=== PATIENT | male | born 1945 | race Caucasian/White ===

== ENCOUNTER → 2016-11-19 | Outpatient (CLI) | payer MEDICARE, BC ==
[2016-11-19 11:03] LABS: MEAN CORPUSCULAR HEMOGLOBIN 31.3 pg (27.0-33.0); MEAN CORPUSCULAR HGB CONC 33.6 g/dl (32.0-36.5); MEAN CORPUSCULAR VOLUME 93.3 fl (80.0-96.0); RED CELL DISTRIBUTION WIDTH 13.2 % (11.5-14.5); WHITE BLOOD COUNT 5.2 K/mm3 (4.0-10.0)
[2016-11-19 12:41] LABS: ALBUMIN 3.7 GM/DL (3.2-5.2); ALBUMIN/GLOBULIN RATIO 1.06 (1.00-1.93); ALKALINE PHOSPHATASE 76 U/L (45-117); ALT/SGPT 26 U/L (12-78); ANION GAP 7 MEQ/L (8-16); AST/SGOT 15 U/L (15-37); BILIRUBIN,TOTAL 0.4 MG/DL (0.2-1.0); BLOOD UREA NITROGEN 15 MG/DL (7-18); CALCIUM LEVEL 8.9 MG/DL (8.8-10.2); CARBON DIOXIDE LEVEL 29 MEQ/L (21-32); CHLORIDE LEVEL 105 MEQ/L (98-107); CHOLESTEROL LEVEL 110 MG/DL (<200); CREATININE FOR GFR 1.24 MG/DL (0.70-1.30); GLOMERULAR FILTRATION RATE > 60.0 (>42); GLUCOSE, FASTING 96 MG/DL (83-110); MAGNESIUM LEVEL 2.1 MG/DL (1.8-2.4); POTASSIUM SERUM 4.2 MEQ/L (3.5-5.1); SODIUM LEVEL 141 MEQ/L (136-145); TOTAL PROTEIN 7.2 GM/DL (6.4-8.2); TRIGLYCERIDES LEVEL 123 MG/DL (<150)
== END ==
LOC: M LAB 10:31
PROVIDERS: ATTEND Physician Assistant
DX: I25.10 Atherosclerotic heart disease of native coronary artery without angina pectoris (principal); I25.5 Ischemic cardiomyopathy; E78.00 Pure hypercholesterolemia, unspecified; I48.0 Paroxysmal atrial fibrillation

== ENCOUNTER → 2016-11-29 | Outpatient (CLI) | payer MEDICARE, BC | LOC: M LAB 14:22 | PROVIDERS: ATTEND Physician Assistant | DX: I25.5 Ischemic cardiomyopathy (principal); E78.5 Hyperlipidemia, unspecified ==

== ENCOUNTER 2017-02-01 10:19 | Emergency (ER) | payer MEDICARE, BC ==
[~2017-02-01] VITALS: Ht 170.2 cm; Wt 94.3 kg
[2017-02-01] MEDS ORDERED: CARV3.12 (10:48)
[2017-02-01] MEDS ORDERED: TAMSULOSIN (10:48)
[2017-02-01] MEDS ORDERED: ASPI32ECTA PO (10:48)
[2017-02-01] MEDS ORDERED: TRAM50TA2 (10:48)
[2017-02-01] MEDS ORDERED: DIGO0.12 (10:48)
[2017-02-01] MEDS ORDERED: ESCI20TA (10:48)
[2017-02-01] MEDS ORDERED: ATOR1TAB18 (10:48)
[2017-02-01] MEDS ORDERED: NITR0.4S14 SL (10:48)
[2017-02-01] MEDS ORDERED: FURO40TA2 (10:48)
[2017-02-01] MEDS ORDERED: LYRI100C10 (10:48)
[2017-02-01] MEDS ORDERED: CLOP75TA2 (10:48)
[2017-02-01] MEDS ORDERED: FINA5TAB2 (10:48)
[2017-02-01] MEDS ORDERED: LOSA50TA20 (10:48)
[2017-02-01 11:57] VITALS: BP 122/67
--- NOTE | 2017-02-04 10:17 | REP ---
LEFT ELBOW SERIES: Four views of the left elbow performed. There is no acute fracture or dislocation. There is mild spurring of the olecranon. Focal soft tissue swelling over the olecranon suggests bursal fluid. IMPRESSION: No acute fracture or dislocation. Soft tissue swelling over the olecranon with possible bursal fluid. Signed by Ander Galeano MD 02/04/2017 04:34 P
== END 2017-02-01 11:58 | disposition home or self-care (01) ==
LOC: M ED 11:22
DX: M70.22 Olecranon bursitis, left elbow (principal); Z79.82 Long term (current) use of aspirin; Z79.899 Other long term (current) drug therapy; F17.210 Nicotine dependence, cigarettes, uncomplicated; Z95.0 Presence of cardiac pacemaker; I25.2 Old myocardial infarction; E78.00 Pure hypercholesterolemia, unspecified; I10 Essential (primary) hypertension; N40.0 Benign prostatic hyperplasia without lower urinary tract symptoms

== ENCOUNTER → 2017-12-30 | Outpatient (CLI) | payer MEDICARE, BC ==
[2017-12-30 09:25] LABS: HEMATOCRIT 41.3 % (42.0-52.0); HEMOGLOBIN 13.9 g/dl (14.0-18.0); MEAN CORPUSCULAR HEMOGLOBIN 31.1 pg (27.0-33.0); MEAN CORPUSCULAR HGB CONC 33.7 g/dl (32.0-36.5); MEAN CORPUSCULAR VOLUME 92.4 fl (80.0-96.0); PLATELET COUNT, AUTOMATED 165 10^3/uL (150-450); RED BLOOD COUNT 4.47 10^6/uL (4.30-6.10); RED CELL DISTRIBUTION WIDTH 13.2 % (11.5-14.5); WHITE BLOOD COUNT 4.9 10^3/uL (4.0-10.0)
[2017-12-30 09:52] LABS: ALBUMIN 3.9 GM/DL (3.2-5.2); ALKALINE PHOSPHATASE 68 U/L (45-117); ALT/SGPT 15 U/L (12-78); ANION GAP 6 MEQ/L (8-16); AST/SGOT 9 U/L (7-37); BILIRUBIN,TOTAL 0.5 MG/DL (0.2-1.0); BLOOD UREA NITROGEN 21 MG/DL (7-18); CALCIUM LEVEL 8.5 MG/DL (8.8-10.2); CARBON DIOXIDE LEVEL 27 MEQ/L (21-32); CHLORIDE LEVEL 111 MEQ/L (98-107); CHOLESTEROL LEVEL 102 MG/DL (<200); CHOLESTEROL RISK RATIO 2.372 (<5); CREATININE FOR GFR 1.04 MG/DL (0.70-1.30); GLOMERULAR FILTRATION RATE > 60.0 (>42); GLUCOSE, FASTING 103 MG/DL (70-100); HDL CHOLESTEROL 43 MG/DL (>40); LDL CHOLESTEROL 38.2 MG/DL (<100); MAGNESIUM LEVEL 2.1 MG/DL (1.8-2.4); NON-HDL-C 59 MG/DL; SODIUM LEVEL 144 MEQ/L (136-145); TOTAL PROTEIN 6.5 GM/DL (6.4-8.2); TRIGLYCERIDES LEVEL 104 MG/DL (<150)
== END ==
LOC: M LAB 09:06
DX: I25.10 Atherosclerotic heart disease of native coronary artery without angina pectoris (principal); I25.5 Ischemic cardiomyopathy; E78.00 Pure hypercholesterolemia, unspecified; I48.0 Paroxysmal atrial fibrillation
CPT/HCPCS: 83735

== ENCOUNTER 2018-04-14 12:53 | Outpatient (RCR) | payer MEDICARE, BC | END 2018-04-26 | LOC: M CR 12:53 | DX: Z51.89 Encounter for other specified aftercare (principal); I50.9 Heart failure, unspecified | CPT/HCPCS: 93798 ==

== ENCOUNTER → 2018-04-14 | Outpatient (CLI) | payer MEDICARE, BC ==
[2018-04-14 14:15] LABS: ANION GAP 11 MEQ/L (8-16); BLOOD UREA NITROGEN 24 MG/DL (7-18); CALCIUM LEVEL 9.1 MG/DL (8.8-10.2); CARBON DIOXIDE LEVEL 26 MEQ/L (21-32); CHLORIDE LEVEL 104 MEQ/L (98-107); CREATININE FOR GFR 1.35 MG/DL (0.70-1.30); GLUCOSE, FASTING 104 MG/DL (70-100); MAGNESIUM LEVEL 2.2 MG/DL (1.8-2.4); SODIUM LEVEL 141 MEQ/L (136-145)
== END ==
LOC: M LAB 12:46
DX: I50.42 Chronic combined systolic (congestive) and diastolic (congestive) heart failure (principal)
CPT/HCPCS: 83735

== ENCOUNTER 2018-04-28 13:22 | Outpatient (RCR) | payer MEDICARE, BC | END 2018-05-27 | LOC: M CR 13:22 | DX: Z51.89 Encounter for other specified aftercare (principal); I50.9 Heart failure, unspecified | CPT/HCPCS: 93798 ==

== ENCOUNTER → 2018-05-30 | Outpatient (CLI) | payer MEDICARE, BC | LOC: M RAD 09:12 | DX: M47.892 Other spondylosis, cervical region (principal); M50.21 Other cervical disc displacement, high cervical region; M50.23 Other cervical disc displacement, cervicothoracic region; M50.221 Other cervical disc displacement at C4-C5 level; M50.223 Other cervical disc displacement at C6-C7 level | CPT/HCPCS: 72125 ==

== ENCOUNTER → 2018-08-14 | Outpatient (CLI) | payer MEDICARE, BC ==
[2018-08-14 13:20] LABS: ANION GAP 5 MEQ/L (8-16); BLOOD UREA NITROGEN 22 MG/DL (7-18); CALCIUM LEVEL 8.6 MG/DL (8.8-10.2); CARBON DIOXIDE LEVEL 32 MEQ/L (21-32); CHLORIDE LEVEL 105 MEQ/L (98-107); CREATININE FOR GFR 1.26 MG/DL (0.70-1.30); GLOMERULAR FILTRATION RATE 59.6 (>42); GLUCOSE, FASTING 93 MG/DL (70-100); MAGNESIUM LEVEL 2.2 MG/DL (1.8-2.4); POTASSIUM SERUM 4.2 MEQ/L (3.5-5.1); SODIUM LEVEL 142 MEQ/L (136-145)
== END ==
LOC: M LAB 12:39
DX: I50.42 Chronic combined systolic (congestive) and diastolic (congestive) heart failure (principal)
CPT/HCPCS: 83735

== ENCOUNTER → 2018-08-15 | Outpatient (REF) | payer MEDICARE, BC ==
[2018-08-15 12:57] LABS: DIGOXIN LEVEL 0.4 NG/ML (0.5-2.0)
== END ==
LOC: M LAB REF 12:05
DX: I25.5 Ischemic cardiomyopathy (principal); Z51.81 Encounter for therapeutic drug level monitoring; Z79.899 Other long term (current) drug therapy
CPT/HCPCS: 80162

== ENCOUNTER → 2018-11-10 | Outpatient (CLI) | payer MEDICARE, BC ==
[~2018-11-10] MED LIST: ASPI325T25 PO; ATOR80TA59 PO; CARV3.12 PO; CLOP75TA2 PO; COLA100C5 PO; DIGO0.12 PO; ESCI20TA PO; FINA5TAB2 PO; FLOM0.4C39 PO; FURO40TA2; LASI20TA3 PO; LOSA50TA88 PO; NITR0.4S14 SL; PREG100CA; ROPI1TAB PO; TAMSULOSIN; TRAM50TA2 PO
[2018-11-10 14:20] LABS: BLOOD UREA NITROGEN 19 MG/DL (7-18); CALCIUM LEVEL 8.4 MG/DL (8.8-10.2); CARBON DIOXIDE LEVEL 30 MEQ/L (21-32); CHLORIDE LEVEL 103 MEQ/L (98-107); CREATININE FOR GFR 1.18 MG/DL (0.70-1.30); GLOMERULAR FILTRATION RATE > 60.0 (>42); GLUCOSE, FASTING 81 MG/DL (70-100); MAGNESIUM LEVEL 2.1 MG/DL (1.8-2.4); POTASSIUM SERUM 3.8 MEQ/L (3.5-5.1); SODIUM LEVEL 140 MEQ/L (136-145)
== END ==
LOC: M LAB 13:08
PROVIDERS: ATTEND Physician Assistant
DX: I50.42 Chronic combined systolic (congestive) and diastolic (congestive) heart failure (principal)

== ENCOUNTER → 2018-12-13 | Outpatient (CLI) | payer MEDICARE, BC ==
--- NOTE | 2018-12-16 20:14 | SLEEPCENT ---
DATE OF PROCEDURE: 12/13/2018 ORDERED BY: Nasrin Foster Nocturnal polysomnography was performed for re-titration of pressure therapy in this patient with obstructive sleep apnea syndrome and persistent symptoms. For testing, a bilevel device was used, an initial pressure of 14 over 10 delivered via [employer] Kathy View full face mask. 7 hours and 56 minutes of data were reviewed. There were 394 minutes of sleep identified. Sleep latency was normal at 22.5 minutes. Rapid eye movement (REM) latency was normal at 123 minutes. Sleep architecture was fair with three REM cycles noted. Overall sleep efficiency was 84.5%. The patient's electrocardiogram showed what appeared to be a paced rhythm with occasional ectopy, average heart rate 50 beats per minute. EEG showed fairly normal waveforms for awake and sleep, some alpha intrusion was noted. Optimal pressure therapy for the relief of obstructive respiratory events was found to be 18 over 14 with which the patient was able to sleep through REM without respiratory event or oxygen desaturation. There was some activity noted in the limb leads but arousals were few. IMPRESSION: Obstructive sleep apnea syndrome (G47.33). RECOMMENDATIONS: Nightly use of bilevel pressure therapy inspiratory 18 over expiratory 14.
== END ==
LOC: M SLEEP 20:00
PROVIDERS: ATTEND Nurse Practitioner Adult Health
DX: G47.33 Obstructive sleep apnea (adult) (pediatric) (principal)

== ENCOUNTER → 2019-02-16 | Outpatient (CLI) | payer MEDICARE, BC ==
[~2019-02-16] MED LIST changes: +ASPI-255 PO; -ASPI325T25 PO
[2019-02-16 12:33] LABS: BLOOD UREA NITROGEN 23 MG/DL (7-18); CALCIUM LEVEL 8.4 MG/DL (8.8-10.2); CARBON DIOXIDE LEVEL 26 MEQ/L (21-32); CHLORIDE LEVEL 109 MEQ/L (98-107); CREATININE FOR GFR 1.18 MG/DL (0.70-1.30); GLOMERULAR FILTRATION RATE > 60.0 (>42); GLUCOSE, FASTING 111 MG/DL (70-100); MAGNESIUM LEVEL 2.2 MG/DL (1.8-2.4); POTASSIUM SERUM 4.2 MEQ/L (3.5-5.1); SODIUM LEVEL 141 MEQ/L (136-145)
== END ==
LOC: M LAB 11:38
PROVIDERS: ATTEND Physician Assistant
DX: I50.42 Chronic combined systolic (congestive) and diastolic (congestive) heart failure (principal)

== ENCOUNTER → 2019-04-10 | Outpatient (REF) | payer MEDICARE, BC | LOC: M LAB REF 11:25 | PROVIDERS: ATTEND Internal Medicine | DX: I25.5 Ischemic cardiomyopathy (principal); Z79.899 Other long term (current) drug therapy ==

== ENCOUNTER → 2019-05-22 | Outpatient (CLI) | payer MEDICARE, BC ==
[2019-05-22 10:37] LABS: HEMATOCRIT 42.8 % (42.0-52.0); HEMOGLOBIN 13.9 g/dl (13.5-17.5); MEAN CORPUSCULAR HEMOGLOBIN 31.7 pg (27.0-33.0); MEAN CORPUSCULAR HGB CONC 32.5 g/dl (32.0-36.5); MEAN CORPUSCULAR VOLUME 97.7 fl (80.0-96.0); PLATELET COUNT, AUTOMATED 186 10^3/uL (150-450); RED BLOOD COUNT 4.38 10^6/uL (4.30-6.10); WHITE BLOOD COUNT 5.9 10^3/uL (4.0-10.0)
[2019-05-22 11:04] LABS: CREATININE FOR GFR 1.28 MG/DL (0.70-1.30); GLOMERULAR FILTRATION RATE 58.3 (>42); MAGNESIUM LEVEL 2.4 MG/DL (1.8-2.4); POTASSIUM SERUM 4.2 MEQ/L (3.5-5.1)
== END ==
LOC: M LAB 10:08
PROVIDERS: ATTEND Physician Assistant
DX: R42 Dizziness and giddiness (principal); I25.5 Ischemic cardiomyopathy; I50.42 Chronic combined systolic (congestive) and diastolic (congestive) heart failure

== ENCOUNTER → 2020-02-17 | Outpatient (REF) | payer MEDICARE, BC ==
[~2020-02-17] MED LIST changes: -ROPI1TAB PO; +ROPI1TAB3 PO
== END ==
LOC: M LAB REF 11:51
PROVIDERS: ATTEND Internal Medicine
DX: I25.5 Ischemic cardiomyopathy (principal)

== ENCOUNTER → 2021-03-28 | Outpatient (CLI) | payer MEDICARE, BC ==
[~2021-03-28] MED LIST changes: -ESCI20TA PO; +ESCI20TA16 PO
[2021-03-28 15:45] LABS: BLOOD UREA NITROGEN 23 MG/DL (7-18); CALCIUM LEVEL 8.9 MG/DL (8.8-10.2); CARBON DIOXIDE LEVEL 31 MEQ/L (21-32); CHLORIDE LEVEL 105 MEQ/L (98-107); CREATININE FOR GFR 1.17 MG/DL (0.70-1.30); GLOMERULAR FILTRATION RATE > 60.0 (>42); GLUCOSE, FASTING 68 MG/DL (70-100); MAGNESIUM LEVEL 2.2 MG/DL (1.8-2.4); POTASSIUM SERUM 4.3 MEQ/L (3.5-5.1); SODIUM LEVEL 141 MEQ/L (136-145)
== END ==
LOC: M LAB 13:59
PROVIDERS: ATTEND Physician Assistant
DX: I50.42 Chronic combined systolic (congestive) and diastolic (congestive) heart failure (principal)

== ENCOUNTER 2021-05-17 16:23 | Emergency (ER) | payer MEDICARE, BC ==
[~2021-05-17] VITALS: Ht 167.6 cm; Wt 90.6 kg
[2021-05-17] MEDS ORDERED: FARX1TAB3 (16:31)
--- NOTE | 2021-05-17 17:02 | REP ---
INDICATION: CHEST PAIN. COMPARISON: 03/04/2018. TECHNIQUE: Single portable AP view of the chest was performed. FINDINGS: There is mild linear fibro atelectatic change in the right lung base. No acute infiltrate is visualized bilaterally. The heart is not significantly enlarged. The mediastinal silhouette is unchanged. Multiple sternal wires mediastinal clips are present. There is a right pacemaker. IMPRESSION: Mild linear fibro atelectatic change right lung base. <Electronically signed by Ander Galeano > 05/17/21 [id number]
[2021-05-17 17:24] LABS: BASO % 0.3 % (0.0-1.0); EOS # 0.2 10^3/uL (0.0-0.5); EOS % 3.8 % (0.0-3.0); HEMATOCRIT 39.8 % (42.0-52.0); HEMOGLOBIN 13.1 g/dl (13.5-17.5); LYMPH # 1.6 10^3/uL (1.5-5.0); LYMPH % 25.4 % (24.0-44.0); MEAN CORPUSCULAR HGB CONC 32.9 g/dl (32.0-36.5); MEAN CORPUSCULAR VOLUME 97.1 fl (80.0-96.0); MONO # 0.8 10^3/uL (0.0-0.8); MONO % 12.6 % (2.0-8.0); NEUTROPHILS # 3.6 10^3/uL (1.5-8.5); NEUTROPHILS % 57.4 % (36.0-66.0); PLATELET COUNT, AUTOMATED 193 10^3/uL (150-450); WHITE BLOOD COUNT 6.3 10^3/uL (4.0-10.0)
[2021-05-17 17:47] LABS: ALBUMIN 3.7 GM/DL (3.2-5.2); ALT/SGPT 22 U/L (12-78); BILIRUBIN,DIRECT 0.1 MG/DL (0.0-0.2); BILIRUBIN,TOTAL 0.4 MG/DL (0.2-1.0); BLOOD UREA NITROGEN 27 MG/DL (7-18); CARBON DIOXIDE LEVEL 30 MEQ/L (21-32); CHLORIDE LEVEL 105 MEQ/L (98-107); CK-MB VALUE MASS < 1.0 NG/ML (<3.6); CPK CREATINE PHOSPHOKINASE 94 U/L (39-308); CREATININE FOR GFR 1.22 MG/DL (0.70-1.30); GLOMERULAR FILTRATION RATE > 60.0 (>42); GLUCOSE, FASTING 89 MG/DL (70-100); LIPASE 671 U/L (73-393); MB/CK RELATIVE INDEX 1.06 (< OR =4); SODIUM LEVEL 141 MEQ/L (136-145); TOTAL PROTEIN 6.5 GM/DL (6.4-8.2); TROPONIN I < 0.02 NG/ML (< 0.10)
--- NOTE | 2021-05-17 18:02 | ECGEPIP ---
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
[2021-05-17 21:28] LABS: CK-MB VALUE MASS 1.1 NG/ML (<3.6); CPK CREATINE PHOSPHOKINASE 81 U/L (39-308); MB/CK RELATIVE INDEX 1.36 (< OR =4); TROPONIN I < 0.02 NG/ML (< 0.10)
[2021-05-17 21:55] VITALS: BP 125/69
== END 2021-05-17 21:51 | disposition home or self-care (01) ==
LOC: M ED 16:23
DX: R07.9 Chest pain, unspecified (principal); E11.9 Type 2 diabetes mellitus without complications; I10 Essential (primary) hypertension; I25.2 Old myocardial infarction; E78.5 Hyperlipidemia, unspecified; Z95.1 Presence of aortocoronary bypass graft; Z95.5 Presence of coronary angioplasty implant and graft

== ENCOUNTER → 2021-10-03 | Outpatient (REF) | payer MEDICARE, BC ==
[~2021-10-03] MED LIST changes: +FARX1TAB3
== END ==
LOC: M LAB REF 12:32
PROVIDERS: ATTEND Internal Medicine
DX: I25.5 Ischemic cardiomyopathy (principal); I11.0 Hypertensive heart disease with heart failure; I50.9 Heart failure, unspecified

== ENCOUNTER → 2022-04-17 | Outpatient (CLI) | payer MEDICARE, BC ==
[~2022-04-17] MED LIST changes: +LOSA50TA28 PO; -LOSA50TA88 PO
[2022-04-17 13:11] LABS: CALCIUM LEVEL 9.8 MG/DL (8.8-10.2); CHOLESTEROL RISK RATIO 2.431 (<5); CREATININE FOR GFR 1.37 MG/DL (0.70-1.30); GLOMERULAR FILTRATION RATE 53.5 (>42); MAGNESIUM LEVEL 2.5 MG/DL (1.8-2.4)
== END ==
LOC: M WUC 09:36
PROVIDERS: ATTEND Physician Assistant
DX: I50.42 Chronic combined systolic (congestive) and diastolic (congestive) heart failure (principal); E78.00 Pure hypercholesterolemia, unspecified

== ENCOUNTER → 2022-07-18 | Outpatient (CLI) | payer MEDICARE, BC ==
[2022-07-18 13:18] LABS: BLOOD UREA NITROGEN 22 MG/DL (7-18); CALCIUM LEVEL 9.6 MG/DL (8.8-10.2); CARBON DIOXIDE LEVEL 29 MEQ/L (21-32); CHLORIDE LEVEL 105 MEQ/L (98-107); CREATININE FOR GFR 1.23 MG/DL (0.70-1.30); GLOMERULAR FILTRATION RATE > 60.0 (>42); GLUCOSE, FASTING 114 MG/DL (70-100); MAGNESIUM LEVEL 2.4 MG/DL (1.8-2.4); POTASSIUM SERUM 3.9 MEQ/L (3.5-5.1); SODIUM LEVEL 139 MEQ/L (136-145)
== END ==
LOC: M WUC 09:22
PROVIDERS: ATTEND Physician Assistant
DX: I50.42 Chronic combined systolic (congestive) and diastolic (congestive) heart failure (principal)

== ENCOUNTER → 2022-08-02 | Outpatient (REF) | payer MEDICARE, BC | LOC: M LAB REF 12:18 | PROVIDERS: ATTEND Internal Medicine | DX: I25.5 Ischemic cardiomyopathy (principal); Z79.899 Other long term (current) drug therapy ==

== ENCOUNTER → 2023-02-12 | Outpatient (REF) | payer MEDICARE, BC | LOC: M LAB REF 12:34 | PROVIDERS: ATTEND Internal Medicine | DX: I25.5 Ischemic cardiomyopathy (principal); Z79.899 Other long term (current) drug therapy ==

== ENCOUNTER 2023-05-25 11:44 | Emergency (ER) | payer MEDICARE, BC ==
[~2023-05-25] VITALS: Ht 170.2 cm; Wt 92.1 kg
[~2023-05-25 11:44] MED LIST changes: -ROPI1TAB3 PO; +ROPI1TAB73 PO
[2023-05-25 12:40] LABS: BASO % 0.5 % (0.0-1.0); EOS # 0.2 10^3/uL (0.0-0.5); HEMATOCRIT 43.6 % (42.0-52.0); HEMOGLOBIN 14.3 g/dl (13.5-17.5); LYMPH # 1.2 10^3/uL (1.5-5.0); LYMPH % 19.2 % (24.0-44.0); MEAN CORPUSCULAR HEMOGLOBIN 31.4 pg (27.0-33.0); MEAN CORPUSCULAR HGB CONC 32.8 g/dl (32.0-36.5); MEAN CORPUSCULAR VOLUME 95.6 fl (80.0-96.0); MONO # 0.8 10^3/uL (0.0-0.8); MONO % 13.2 % (2.0-8.0); NEUTROPHILS # 4.1 10^3/uL (1.5-8.5); NEUTROPHILS % 63.9 % (36.0-66.0); PLATELET COUNT, AUTOMATED 196 10^3/uL (150-450); RED BLOOD COUNT 4.56 10^6/uL (4.30-6.10); WHITE BLOOD COUNT 6.4 10^3/uL (4.0-10.0)
[2023-05-25 12:52] LABS: INR 0.96; PARTIAL THROMBOPLASTIN TIME 38.1 SECONDS (24.8-34.2)
[2023-05-25 13:10] LABS: CK-MB VALUE MASS 1.1 NG/ML (<3.6); LIPASE 289 U/L (12-53)
[2023-05-25 13:13] LABS: THYROID STIMULATING HORMONE 2.677 uIU/ML (0.55-4.78)
[2023-05-25 13:16] LABS: ALBUMIN 3.5 G/DL (3.2-5.2); ALKALINE PHOSPHATASE 75 U/L (46-116); ALT/SGPT 18 U/L (7.0-40); AST/SGOT 9 U/L (<34); BILIRUBIN,DIRECT 0.2 MG/DL (<0.4); BILIRUBIN,TOTAL 0.6 MG/DL (0.3-1.2); BLOOD UREA NITROGEN 17 MG/DL (9-23); CARBON DIOXIDE LEVEL 26 MMOL/L (20-31); CHLORIDE LEVEL 105 MMOL/L (98-107); CPK CREATINE PHOSPHOKINASE 83 U/L (46-171); GLOMERULAR FILTRATION RATE > 60.0 (>42); GLUCOSE, FASTING 101 MG/DL (74-106); MB/CK RELATIVE INDEX 1.32 (< OR =4); POTASSIUM SERUM 4.6 MMOL/L (3.5-5.1); SODIUM LEVEL 141 MMOL/L (136-145); TOTAL PROTEIN 6.1 G/DL (5.7-8.2)
[2023-05-25 14:18] LABS: CK-MB VALUE MASS < 1.0 NG/ML (<3.6)
[2023-05-25 14:22] LABS: CPK CREATINE PHOSPHOKINASE 76 U/L (46-171); MB/CK RELATIVE INDEX 1.31 (< OR =4)
[2023-05-25 16:16] VITALS: BP 111/57; TEMP 98.1; O2SAT 97
== END 2023-05-25 16:25 | disposition home or self-care (01) ==
LOC: M ED 11:44
DX: T82.198A Other mechanical complication of other cardiac electronic device, initial encounter (principal); I25.10 Atherosclerotic heart disease of native coronary artery without angina pectoris; I50.20 Unspecified systolic (congestive) heart failure; Z79.82 Long term (current) use of aspirin; Z79.899 Other long term (current) drug therapy

== ENCOUNTER → 2023-12-02 | Outpatient (REF) | payer MEDICARE, BC | LOC: M LAB REF 12:46 | PROVIDERS: ATTEND Internal Medicine | DX: I42.8 Other cardiomyopathies (principal) ==

== ENCOUNTER → 2024-01-04 | Outpatient (CLI) | payer MEDICARE, BC ==
[2024-01-04 10:50] LABS: BLOOD UREA NITROGEN 19 MG/DL (9-23); CARBON DIOXIDE LEVEL 30 MMOL/L (20-31); CHLORIDE LEVEL 106 MMOL/L (98-107); CREATININE FOR GFR 1.15 MG/DL (0.70-1.30); GLOMERULAR FILTRATION RATE > 60.0 (>35); GLUCOSE, FASTING 83 MG/DL (74-106); POTASSIUM SERUM 3.5 MMOL/L (3.5-5.1); SODIUM LEVEL 139 MMOL/L (136-145)
== END ==
LOC: M LAB 10:08
PROVIDERS: ATTEND Physician Assistant
DX: I50.42 Chronic combined systolic (congestive) and diastolic (congestive) heart failure (principal)

== ENCOUNTER → 2024-01-13 | Outpatient (CLI) | payer MEDICARE, BC | LOC: M PLAIMG 13:47 | PROVIDERS: ATTEND Physician Assistant | DX: I50.42 Chronic combined systolic (congestive) and diastolic (congestive) heart failure (principal) ==

== ENCOUNTER → 2024-01-30 | Outpatient (REF) | payer MEDICARE, BC | LOC: M LABWUC 16:47 → M LAB REF 16:47 | PROVIDERS: ATTEND Physician Assistant | DX: I50.42 Chronic combined systolic (congestive) and diastolic (congestive) heart failure (principal) ==

== ENCOUNTER → 2024-06-19 | Outpatient (REF) | payer MEDICARE, BC | LOC: M LAB REF 12:11 | PROVIDERS: ATTEND Internal Medicine | DX: I25.5 Ischemic cardiomyopathy (principal); Z79.899 Other long term (current) drug therapy ==

== ENCOUNTER → 2024-12-10 | Outpatient (REF) | payer MEDICARE, BC | LOC: M LAB REF 13:05 | PROVIDERS: ATTEND Internal Medicine | DX: I25.5 Ischemic cardiomyopathy (principal) ==

== ENCOUNTER → 2025-05-18 | Outpatient (CLI) | payer MEDICARE, BC ==
[~2025-05-18] MED LIST changes: -FLOM0.4C39 PO; +PREG-35; -PREG100CA; +TAMS-18 PO
== END ==
LOC: M RAD 08:20
PROVIDERS: ATTEND Internal Medicine
DX: K76.89 Other specified diseases of liver (principal); K76.0 Fatty (change of) liver, not elsewhere classified

== ENCOUNTER → 2025-06-18 | Outpatient (REF) | payer MEDICARE, BC | LOC: M LAB REF 12:06 | PROVIDERS: ATTEND Internal Medicine | DX: I25.5 Ischemic cardiomyopathy (principal); Z79.899 Other long term (current) drug therapy ==